=== PATIENT | male | born 1990 | race Caucasian/White ===

== ENCOUNTER 2017-11-07 19:13 | Inpatient (IN) | payer BC ==
[~2017-11-07] VITALS: Ht 175.3 cm; Wt 99.0 kg
[2017-11-07 19:28] VITALS: Ht 175.3 cm; Wt 99.0 kg
[2017-11-07 21:12] LABS: BASOPHIL % 0.5 % (0-2); PLATELET COUNT 182 x10^3mcL (130-400); RED CELL DISTRIBUTION WIDTH 12.1 % (11.5-14.5)
[2017-11-07 21:21] LABS: CALCIUM 8.6 mg/dL (8.5-10.1); CARBON DIOXIDE 22.7 mmol/L (21-32); CHLORIDE SERUM 99 mmol/L (98-107); CREATININE SERUM 0.8 mg/dL (0.7-1.3); GFR1 > 60 mL/min; GLUCOSE SERUM 119 mg/dL (74-106); POTASSIUM SERUM 3.8 mmol/L (3.5-5.1); SODIUM SERUM 132 mmol/L (136-145)
[2017-11-07 21:26] LABS: ALKALINE PHOSPHATASE 68 U/L (46-116); ALT/SGPT 118 U/L (16-63); BILIRUBIN TOTAL 0.71 mg/dL (0.20-1.00); LIPASE 1024 IU/L (73-393)
[2017-11-07 21:32] LABS: TOTAL PROTEIN, SERUM 8.3 g/dL (6.4-8.2)
[2017-11-07 22:16] LABS: AST/SGOT 151 U/L (15-37)
[2017-11-07 23:01] LABS: T3 TOTAL 0.83 ng/mL
[2017-11-07 23:17] LABS: AMYLASE 72 U/L (25-115)
[2017-11-07 23:25] VITALS: BP 164/105
[2017-11-07 23:26] LABS: CHOLESTEROL 236 mg/dL (<200); CHOLESTEROL/HDL RATIO 7.9; HDL CHOLESTEROL 30 mg/dL (40-60); TRIGLYCERIDES 1235 mg/dL (<150)
[2017-11-07 23:29] LABS: UA SPECIFIC GRAVITY 1.025 (1.005-1.035); microscopic required? YES; urine erythrocyte TRACE (NEGATIVE)
[2017-11-07 23:43] LABS: AMPHETAMINE QUAL UR NONE DETECTED (See below)
[2017-11-07 23:53] LABS: FREE T4 0.86 ng/dL (0.76-1.46); T4(THYROXINE) 5.8 ug/dL (4.7-13.3)
[2017-11-07 23:58] VITALS: BP 149/88
[2017-11-08 04:43] VITALS: BP 133/81
[2017-11-08 04:50] LABS: BASOPHIL % 0.3 % (0-2); PLATELET COUNT 247 x10^3mcL (130-400); RED CELL DISTRIBUTION WIDTH 11.9 % (11.5-14.5)
[2017-11-08 05:03] LABS: CALCIUM 7.5 mg/dL (8.5-10.1); CARBON DIOXIDE 22.2 mmol/L (21-32); CHLORIDE SERUM 101 mmol/L (98-107); CREATININE SERUM 0.9 mg/dL (0.7-1.3); GFR1 > 60 mL/min; GLUCOSE SERUM 108 mg/dL (74-106); MAGNESIUM 1.6 mg/dL (1.8-2.4); PHOSPHOROUS 3.5 mg/dL (2.5-4.9); POTASSIUM SERUM 3.8 mmol/L (3.5-5.1); SODIUM SERUM 132 mmol/L (136-145)
[2017-11-08 09:12] VITALS: BP 101/55; BP 142/87
[2017-11-08 13:56] VITALS: BP 130/76
[2017-11-08 18:31] VITALS: BP 139/86
[2017-11-08 20:24] VITALS: BP 153/90
[2017-11-09 05:00] VITALS: BP 133/81
[2017-11-09 05:57] LABS: BASOPHIL % 0.1 % (0-2); PLATELET COUNT 185 x10^3mcL (130-400); RED CELL DISTRIBUTION WIDTH 12.5 % (11.5-14.5)
[2017-11-09 06:02] LABS: CARBON DIOXIDE 23.5 mmol/L (21-32); CHLORIDE SERUM 103 mmol/L (98-107); CREATININE SERUM 0.7 mg/dL (0.7-1.3); GFR1 > 60 mL/min; GLUCOSE SERUM 103 mg/dL (74-106); LIPASE 635 IU/L (73-393); MAGNESIUM 2.2 mg/dL (1.8-2.4); PHOSPHOROUS 2.5 mg/dL (2.5-4.9); POTASSIUM SERUM 3.7 mmol/L (3.5-5.1); SODIUM SERUM 133 mmol/L (136-145)
[2017-11-09 08:42] VITALS: BP 142/83
[2017-11-09 14:00] VITALS: BP 131/81
[2017-11-09 14:21] VITALS: BP 142/83
[2017-11-09 16:58] VITALS: BP 142/83
== END 2017-11-09 18:08 | disposition home or self-care (01) | DRG 438 ==
LOC: ED 19:13 → DU 22:05 → MU 22:05 → DU 11-08 03:22
PROVIDERS: Emergency Medicine; Family Medicine
DX: K85.20 Alcohol induced acute pancreatitis without necrosis or infection (principal); N17.0 Acute kidney failure with tubular necrosis; E72.20 Disorder of urea cycle metabolism, unspecified; E78.1 Pure hyperglyceridemia; F10.129 Alcohol abuse with intoxication, unspecified; F14.90 Cocaine use, unspecified, uncomplicated; Y90.4 Blood alcohol level of 80-99 mg/100 ml; R74.0 Nonspecific elevation of levels of transaminase and lactic acid dehydrogenase [LDH]; E78.5 Hyperlipidemia, unspecified; F17.210 Nicotine dependence, cigarettes, uncomplicated; E66.9 Obesity, unspecified; Z68.32 Body mass index [BMI] 32.0-32.9, adult; F19.10 Other psychoactive substance abuse, uncomplicated
CPT/HCPCS: 83880; 84439; C9113; G0480; J1885; J2270; J2405; J3010; J3475; J7030; J7120; Q0162

== ENCOUNTER 2018-01-21 09:23 | Inpatient (IN) | payer BC ==
[~2018-01-21] VITALS: Ht 175.3 cm; Wt 102.2 kg
[2018-01-21 09:39] VITALS: Ht 175.3 cm; Wt 102.2 kg
[2018-01-21 10:33] LABS: CHLORIDE SERUM 98 mmol/L (98-107); GFR1 > 60 mL/min; GLUCOSE SERUM 123 mg/dL (74-106); POTASSIUM SERUM 3.8 mmol/L (3.5-5.1); SODIUM SERUM 133 mmol/L (136-145)
[2018-01-21 10:38] LABS: ALBUMIN 4.1 g/dL (3.4-5.0); ALKALINE PHOSPHATASE 88 U/L (46-116); ALT/SGPT 205 U/L (16-63); AST/SGOT 115 U/L (15-37); BILIRUBIN TOTAL 0.8 mg/dL (0.20-1.00)
[2018-01-21 10:45] LABS: LIPASE 2148 IU/L (73-393); TOTAL PROTEIN, SERUM 8.5 g/dL (6.4-8.2)
[2018-01-21 10:46] LABS: BASOPHIL % 0.1 % (0-2); PLATELET COUNT 304 x10^3mcL (130-400); RED CELL DISTRIBUTION WIDTH 12.4 % (11.5-14.5)
[2018-01-21 12:33] LABS: PHOSPHOROUS 3.7 mg/dL (2.5-4.9)
[2018-01-21 12:34] VITALS: BP 152/86
[2018-01-21 13:01] LABS: CHOLESTEROL 256 mg/dL (<200); CHOLESTEROL/HDL RATIO 9.5; HDL CHOLESTEROL 27 mg/dL (40-60); TRIGLYCERIDES 1384 mg/dL (<150)
[2018-01-21 13:22] LABS: UA SPECIFIC GRAVITY 1.025 (1.005-1.035); microscopic required? YES; urine erythrocyte NEGATIVE (NEGATIVE)
[2018-01-21 14:58] LABS: AMPHETAMINE QUAL UR NONE DETECTED (See below)
[2018-01-21 17:54] VITALS: BP 147/101
[2018-01-21 20:51] VITALS: BP 170/111
[2018-01-21 23:00] VITALS: BP 136/104
[2018-01-22 05:58] VITALS: BP 132/93
[2018-01-22 06:53] LABS: CALCIUM 7.6 mg/dL (8.5-10.1); CARBON DIOXIDE 18.9 mmol/L (21-32); POTASSIUM SERUM 4.3 mmol/L (3.5-5.1)
[2018-01-22 07:25] LABS: PLATELET COUNT 220 x10^3mcL (130-400); RED CELL DISTRIBUTION WIDTH 13.3 % (11.5-14.5)
[2018-01-22 07:58] LABS: BAND NEUTROPHIL 26 % (0-10); BASOPHIL 0 % (0-2); MONOCYTE 6 % (0-7); SEGMENTED NEUTROPHILS 62 % (37-75)
[2018-01-22 07:59] LABS: PLATELET MORPHOLOGY PLATELETS DECREASED; rbc morphology (normal/abnorm) NORMAL (NORMAL)
[2018-01-22 09:30] VITALS: BP 154/112
[2018-01-22 14:50] VITALS: BP 145/96
[2018-01-22 16:55] VITALS: BP 145/93
[2018-01-22 20:20] VITALS: BP 146/106
[2018-01-22 22:13] VITALS: BP 139/94
[2018-01-23] VITALS (7 sets, daily range): BP systolic 150–165; BP diastolic 83–105
[2018-01-23 06:24] LABS: PLATELET COUNT 181 x10^3mcL (130-400); RED CELL DISTRIBUTION WIDTH 13.8 % (11.5-14.5)
[2018-01-23 06:29] LABS: CALCIUM 6.8 mg/dL (8.5-10.1); CARBON DIOXIDE 16.6 mmol/L (21-32); CHLORIDE SERUM 99 mmol/L (98-107); GFR1 > 60 mL/min; GLUCOSE SERUM 156 mg/dL (74-106); SODIUM SERUM 126 mmol/L (136-145)
[2018-01-23 06:37] LABS: AMYLASE 208 U/L (25-115)
[2018-01-23 07:09] LABS: LIPASE 2719 IU/L (73-393)
[2018-01-23 14:11] LABS: BAND NEUTROPHIL 20 % (0-10); MONOCYTE 6 % (0-7); SEGMENTED NEUTROPHILS 59 % (37-75)
[2018-01-23 14:19] LABS: rbc morphology (normal/abnorm) ABNORMAL (NORMAL)
[2018-01-23 14:20] LABS: PLATELET MORPHOLOGY PLATELETS NORMAL
[2018-01-24 04:49] VITALS: BP 152/96
[2018-01-24 07:35] LABS: CALCIUM 7.4 mg/dL (8.5-10.1); CARBON DIOXIDE 23.4 mmol/L (21-32); CHLORIDE SERUM 97 mmol/L (98-107); CREATININE SERUM 0.7 mg/dL (0.7-1.3); GFR1 > 60 mL/min; GLUCOSE SERUM 116 mg/dL (74-106); POTASSIUM SERUM 3.6 mmol/L (3.5-5.1); SODIUM SERUM 129 mmol/L (136-145)
[2018-01-24 07:37] LABS: AMYLASE 160 U/L (25-115); LIPASE 1828 IU/L (73-393)
[2018-01-24 07:53] LABS: PLATELET COUNT 190 x10^3mcL (130-400); RED CELL DISTRIBUTION WIDTH 13.6 % (11.5-14.5)
[2018-01-24 10:18] VITALS: BP 143/91
[2018-01-24 13:40] VITALS: BP 143/84
[2018-01-24 14:29] LABS: BAND NEUTROPHIL 23 % (0-10); METAMYELOCTE 1 % (0-2); MONOCYTE 7 % (0-7); SEGMENTED NEUTROPHILS 51 % (37-75)
[2018-01-24 14:30] LABS: MYELOCYTE 2 % (0-2); rbc morphology (normal/abnorm) NORMAL (NORMAL)
[2018-01-24] MEDS ORDERED: LIB25 PO (15:31)
[2018-01-24] MEDS ORDERED: TOR10 PO (15:32)
[2018-01-24 16:38] VITALS: BP 143/84
[2018-01-24 16:45] VITALS: BP 140/86
== END 2018-01-24 18:34 | disposition home or self-care (01) | DRG 438 ==
LOC: ED 09:23 → MU 11:43 → DU 11:43 → MU 12:24 → DU 01-22 00:55
PROVIDERS: Emergency Medicine; Family Medicine
DX: K85.90 Acute pancreatitis without necrosis or infection, unspecified (principal); N17.0 Acute kidney failure with tubular necrosis; E87.1 Hypo-osmolality and hyponatremia; E78.5 Hyperlipidemia, unspecified; F10.10 Alcohol abuse, uncomplicated; Y90.9 Presence of alcohol in blood, level not specified; E86.0 Dehydration; K86.1 Other chronic pancreatitis; F14.10 Cocaine abuse, uncomplicated; Z71.51 Drug abuse counseling and surveillance of drug abuser; D72.829 Elevated white blood cell count, unspecified
CPT/HCPCS: C9113; G0480; J0360; J2060; J2270; J2405; J7030; J8597; Q0092; Q0162

== ENCOUNTER 2018-11-24 19:50 | Inpatient (IN) | payer OTHER ==
[~2018-11-24] VITALS: Ht 175.3 cm; Wt 100.2 kg
[~2018-11-24 19:50] MED LIST: LIB25 PO; TOR10 PO
[2018-11-24 20:30] VITALS: Ht 175.3 cm; Wt 100.2 kg
--- NOTE | 2018-11-24 21:23 | NUR ---
PT COMES TO ED WITH C/C RLQ ABD PAIN. 01/08 SHARP, RADIATING TO LEFT LOWER BACK. C/O N/V/D. DENIES FEVER AND DYSURIA. PER PT HE HAS HX PANCREATITIS AND IS NOT SUPPOSED TO BE DRINKING. PT STS "I OVERDID IT A LITTLE THIS WEEKEND WITH ALCOHOL AND I THINK ITS MY PANCREATITIS ACTING UP AGAIN." PT CONNECTED TO MONITOR. AWAITING MSE.
[2018-11-24 21:56] LABS: BASOPHIL % 0.3 % (0-2); PLATELET COUNT 265 x10^3mcL (130-400); RED CELL DISTRIBUTION WIDTH 12.7 % (11.5-14.5)
[2018-11-24 21:58] LABS: UA SPECIFIC GRAVITY >=1.030 (1.005-1.035); microscopic required? YES; urine erythrocyte 2+ (NEGATIVE)
[2018-11-24 22:20] LABS: CALCIUM 9.1 mg/dL (8.5-10.1); CARBON DIOXIDE 22.2 mmol/L (21-32); CHLORIDE SERUM 100 mmol/L (98-107); CREATININE SERUM 1.1 mg/dL (0.7-1.3); GFR1 > 60 mL/min; GLUCOSE SERUM 127 mg/dL (74-106); POTASSIUM SERUM 4.2 mmol/L (3.5-5.1); SODIUM SERUM 138 mmol/L (136-145)
--- NOTE | 2018-11-24 22:20 | NUR ---
PT TAKEN TO CT.
[2018-11-24 22:22] LABS: ALBUMIN 4.5 g/dL (3.4-5.0); ALKALINE PHOSPHATASE 62 U/L (46-116); ALT/SGPT 96 U/L (16-63); AST/SGOT 61 U/L (15-37); BILIRUBIN TOTAL 0.68 mg/dL (0.20-1.00)
[2018-11-24 22:25] LABS: AMYLASE 173 U/L (25-115); TOTAL PROTEIN, SERUM 8.5 g/dL (6.4-8.2)
--- NOTE | 2018-11-24 23:01 | NUR ---
PT PAIN REMAINS 01/08. DR WILKINS AWARE. FENTANYL TO BE ORDERED. MEDICATED ORDERED, SEE EMAR.
[2018-11-24 23:05] LABS: LIPASE 2534 IU/L (73-393)
--- NOTE | 2018-11-25 00:05 | NUR ---
REPORT CALLED AND GIVEN TO MARGARET ON MST.
[2018-11-25 00:34] VITALS: BP 134/86
--- NOTE | 2018-11-25 00:45 | NUR ---
RECEIVED PT FROM ER, PT ADMIT FOR INTRACTABLE VOMITTING, AND ACUTE PANCREATITIS, PT IS A/O X4, VERBAL RESPONSIVE, ABLE TO TELL WHAT HE NEEDS. LUNG SOUND CLEAR BILATERAL, NO COUGH, NO SOB, PT DENY ANY CHEST PAIN OR DISCOMFORT, BOWEL SOUND PRESENT ALL 4 QUADRANTS, NO DISTENTION, BUT C/O ABD PAIN 11/08, PT STATE HE DRINK TOO MUCH YESTERDAY. AND ALSO HE DRINK EVERY OTHER DAYS. AND USUALLY DRINK 2 BEER. NO ETOH WITHDRAWAL SYMPTON NOTED AT THIS MOMENT. PEDAL PULSE PRESENT BOTH FEET, NO EDEMA, IV AT RIGHT AC, NO LEAKING, NO INFILTRATION. ALL ADLS ASSIST, ALL NEED MET, CALL LIGHT IN REACH, WILL CONTINUE TO MONITOR.
--- NOTE | 2018-11-25 01:00 | NUR ---
ASSUMED CARE OF PATIENT AT THIS TIME. PATIENT REPORTING 10/10 ABDOMINAL PAIN THAT RADIATES TO HIS BACK. ABDOMEN IS SOFT AND FLAT. IV SALINE LOCKED TO RAC.
--- NOTE | 2018-11-25 01:22 | NUR ---
PATIENT GIVEN DILAUDID PER EMAR FOR REPORT OF 10/10 ABDOMINAL PAIN.
--- NOTE | 2018-11-25 01:40 | NUR ---
IV INFUSING NS AT 125 ML/HR PER EMAR AT THIS TIME.
--- NOTE | 2018-11-25 01:45 | NUR ---
PATIENT TRANSFERRED TO [facility] DUE TO ALCOHOL WITHDRAWAL. PATIENT ON MONITOR 25, NSR 72 PACS.
--- NOTE | 2018-11-25 04:28 | NUR ---
PATIENTS IV TO RAC WONT FLUSH. IV REMOVED WITH CATHETER INTACT. NEW 22 G IV STARTED ON LH. DILAUDID GIVEN PER EMAR FOR REPORT OF 10/10 ABDOMINAL PAIN.
--- NOTE | 2018-11-25 06:07 | NUR ---
KARMA REPORTS HIS PAIN FEELS MANAGEABLE AT 5/10. IV TO LH INFUSING WELL WITHOUT INFILTRATION. ON TELE 25 NSR WITH OCCASIONAL PAC. BED LOCKED AND IN LOWEST POSITION. CALL LIGHT AND BEDSIDE TABLE WITHIN REACH. WILL ENDORSE CRAE TO DAYSHIFT NURSE.
[2018-11-25 06:23] VITALS: BP 143/92
[2018-11-25 06:40] LABS: BASOPHIL % 0.2 % (0-2); PLATELET COUNT 232 x10^3mcL (130-400)
[2018-11-25 07:11] LABS: CALCIUM 7.9 mg/dL (8.5-10.1); CARBON DIOXIDE 21.3 mmol/L (21-32); CHLORIDE SERUM 104 mmol/L (98-107); CREATININE SERUM 0.9 mg/dL (0.7-1.3); GFR1 > 60 mL/min; GLUCOSE SERUM 127 mg/dL (74-106); SODIUM SERUM 139 mmol/L (136-145)
[2018-11-25 07:20] LABS: AMYLASE 216 U/L (25-115)
--- NOTE | 2018-11-25 07:59 | NUR ---
AAO TIMES 4. TELE # 25 SR. LUNGS CTA. NO SOB. O2 SAT ON RA 99%. BS'S ACTIVE TIMES 4. GOMEZ STRONG. SLEEPY BUT AROUSABLE. IV SITE CDI. NPO, C/O NAUSEA AND PAIN TO ABDOMEN, HISTORY OF ETOH ABUSE. LIPASE 2,534, AMYLASE 216. NO FAMILY PRESENT. IV SITE CDI. BANANA BAG STARTED DIRECTED.
[2018-11-25 08:17] LABS: LIPASE 2344 IU/L (73-393)
[2018-11-25 08:52] VITALS: BP 137/78
[2018-11-25 12:19] VITALS: BP 150/92
--- NOTE | 2018-11-25 17:48 | NUR ---
SLEEPING MOST OF DAY, BUT AWAKENS AND SITS UP AND ASKS FOR PAIN MEDICINE FOR ABDOMINAL AND BACK PAIN. DILAUDID 1 MG IVP WAS GIVEN AT 1554. TELE # 25 SR. NO SOB. VS'S STABLE. IV SITE CDI. COOPERATIVE. NO SOB.
[2018-11-25 19:17] VITALS: BP 146/76
--- NOTE | 2018-11-25 19:20 | NUR ---
REC'D PT FROM DAY NURSE. FEMALE GUEST AT BEDSIDE. PT SITTING UP IN BED. AAOX4, SPEECH CLEAR, FOLLOWS COMMANDS. TELE 25. DENIES CP, DIZZINESS, OR PALPITATIONS. DENIES RESP DISTRESS OR SOB. BREATHING EVEN/UNLABORED ON RA. ABD SOFT/ROUND/TENDER. C/O SHARP L SIDED ABD PAIN 10/10 RADIATING TO L SIDE. OF BACK. WILL GIVE DILAUDID PER ORDER. DENIES N/V. VOIDING FREELY. AMBULATORY. SKIN INTACT. IV TO LH PATENT AND INFUSING, SITE WNL. CALL LIGHT WITHIN REACH, BED AT LOWEST POSITION. WILL CONTINUE TO MONITOR.
[2018-11-25 21:06] VITALS: BP 145/89
--- NOTE | 2018-11-25 23:19 | NUR ---
PT C/O SHARP 10/10 ABD PAIN. DILAUDID GIVEN PER ORDER. WILL MONITOR FOR RELIEF.
--- NOTE | 2018-11-26 01:38 | NUR ---
PT RESTING IN BED WITH EYES CLOSED. NO SIGNS OF DISTRESS NOTED. BREATHING EVEN/UNLABORED ON RA. CALL LIGHT WITHIN REACH, BED AT LOWEST POSITION. WILL CONTINUE TO MONITOR.
--- NOTE | 2018-11-26 02:42 | NUR ---
PT C/O 10/ SHARP L SIDED ABD PAIN RADIATING TO THE BACK. DILAUDID GIVEN PER ORDER. WILL MONITOR FOR RELIEF.
[2018-11-26 05:40] VITALS: BP 129/66
--- NOTE | 2018-11-26 05:54 | NUR ---
PT SLEEPING. AWAKENS WITH VERBAL STIMULI. SCHEDULED ATIVAN GIVEN. PT REPORTS PAIN TO ABD AND REQUESTING PAIN MEDS. INFORMED PT UNABLE TO GIVE ATIVAN CONCURRENTLY WITH DILAUDID D/T RISK OF RESPIRATORY DEPRESSION. INSTRUCTED PT TO CALL ME IN 40-50 MIN IF AWAKE AND STILL IN PAIN. PT VERBALIZED UNDERSTANDING. NO SIGNFICANT CHANGES DURING SHIFT. CALL LIGHT WITHIN REACH, BED AT LOWEST POSITION. WILL ENDORSE TO DAY NURSE.
--- NOTE | 2018-11-26 07:02 | NUR ---
RECEIVED PT FROM FLOOR REFINISHER NURSE. PT IN BED SLEEPING, AROUSABLE, RESP E/U ON RA. NO SIGNS OF ACUTE DISTRESS NOTED. ON TELE 25 SHOWING NSR, HR: 97. IV TO LH W/ NO SIGNS OF INFILTRATION, IVF INFUSING WELL. BED IN LOWEST POSITION AND CALL LIGHT WITHIN REACH. WILL CONTINUE TO MONITOR.
[2018-11-26 07:30] LABS: BASOPHIL % 0.2 % (0-2); PLATELET COUNT 160 x10^3mcL (130-400); RED CELL DISTRIBUTION WIDTH 12.7 % (11.5-14.5)
[2018-11-26 07:56] VITALS: BP 147/79
[2018-11-26 08:06] LABS: ALKALINE PHOSPHATASE 48 U/L (46-116); ALT/SGPT 57 U/L (16-63); AST/SGOT 40 U/L (15-37); BILIRUBIN TOTAL 0.7 mg/dL (0.20-1.00); CALCIUM 7.7 mg/dL (8.5-10.1); CARBON DIOXIDE 23.7 mmol/L (21-32); CHLORIDE SERUM 106 mmol/L (98-107); CREATININE SERUM 0.7 mg/dL (0.7-1.3); GFR1 > 60 mL/min; GLUCOSE SERUM 117 mg/dL (74-106); MAGNESIUM 2.3 mg/dL (1.8-2.4); POTASSIUM SERUM 3.8 mmol/L (3.5-5.1); SODIUM SERUM 141 mmol/L (136-145)
[2018-11-26 08:07] LABS: ALBUMIN 3.1 g/dL (3.4-5.0)
--- NOTE | 2018-11-26 12:30 | NUR ---
PT C/O ABD PAIN 01/08. MEDICATED ORDERED PER EMAR, COMFORT MEASURES IMPLEMENTED. PT AOX4, RESP E/U ON RA, DENIES N/V. BED IN LOWEST POSITION AND CALL LIGHT WITHIN REACH. WILL CONTINUE TO MONITOR.
[2018-11-26 16:22] VITALS: BP 141/83
--- NOTE | 2018-11-26 17:50 | NUR ---
PT RESTING IN BED, AOX4, RESP E/U ON RA. REPORTED MILD ABD PAIN 4/10 BUT TOLERABLE, NO REQUEST FOR PAIN MEDS. DENIES N/V, TOLERATING FULL LIQUID DIET WELL. IV TO L HAND W/ NO SIGNS OF INFILTRATION, IVF INFUSING WELL. BED IN LOWEST POSITION AND CALL LIGHT WITHIN REACH. WILL ENDORSE TO ONCOMING NURSE.
[2018-11-26 19:26] VITALS: BP 136/89
--- NOTE | 2018-11-26 19:30 | NUR ---
RECIEVED PT IN NO ACUTE DISTRESS. AOX4. TELE #25, SR. BREATHING E/U. DENIES ABD PAIN/N/V. IV TO LH, PATENT, NO REDNESS/SWELLING. BED IN LOWEST POSITION, 2 SIDE RAILS UP, CALL LIGHT IN REACH. INSTRUCTED TO CALL FOR ASSISTANCE.
--- NOTE | 2018-11-27 01:30 | NUR ---
RESTING WITH EYES CLOSED. BREATHING E/U. NO ACUTE DISTRESS NOTED. WILL CONTINUE TO MONITOR.
[2018-11-27 05:09] VITALS: BP 121/68
--- NOTE | 2018-11-27 07:30 | NUR ---
RECEIVED PATIENT IN BED AWAKE, ALERT. DENIES ANY PAIN OR DISCOMFORT. RESP EVEN AND LABORED, LUNGS CLEAR, ON ROOM AIR. IVF INFUSING WELL SITE PATENT. TOLERATED FULL LIQUID DIET FOR BREAKFAST WELL. TELE 25 NSR. WILL CONTINUE TO MONITOR.
--- NOTE | 2018-11-27 08:18 | NUR ---
PATIENT'S PLAN OF CARE WAS DISCUSSED AND REVIEWED WITH LOAN SERVICING OFFICER:LILIBETH MARTINEZ. I HAVE REVIEWED THE DATA COLLECTION BY LOAN SERVICING OFFICER (NAME):LILIBETH MARTINEZ. ENTERED ON (DATE/TIME):11/27/18. I CONCUR WITH THE DATA AND ANY EXCEPTIONS OR COMMENTS ARE LISTED BELOW:
[2018-11-27 08:38] VITALS: BP 148/85
--- NOTE | 2018-11-27 10:28 | NUR ---
PATIENT IN BED, AWAKE, ALERT AND ORIENTED. C/O UPPER BACK PAIN 8/10 ON THE PAIN SCALE. MEDICATED WITH DILAUDID IV BY RENEE PACHECO ORDERED. WILL MONITOR FOR EFFECT.
--- NOTE | 2018-11-27 10:58 | NUR ---
PATIENT IS IN BED, APPEARS TO BE SLEEPING WELL. NO FURTHER C/O BACK PAIN OR DISCOMFORT SINCE DILAUDID WAS GIVEN. WILL CONTINUE TO MONITOR.
[2018-11-27 11:34] VITALS: BP 155/95
--- NOTE | 2018-11-27 14:12 | NUR ---
PATIENT REMAINS IN BED. ALERT ORIENTED. NO FURHTER C/O BACK OR ABD PAIN. TOLERATED DIET WELL. NEW IV STARTED THIS AM BY RENEE PACHECO. NO ACUTE DISTRESS NOTED. WILL CONTINUE TO MONITOR.
--- NOTE | 2018-11-27 16:06 | NUR ---
PATIENT IS IN BED, WATCHING TV. NO C/O PAIN OR DISCOMFORT AT THIS TIME. NO ACUTE DISTRESS NOTED. WILL CONTINUE TO MONITOR.
[2018-11-27 16:45] VITALS: BP 154/97
--- NOTE | 2018-11-27 17:48 | NUR ---
PATIENT SITTING UP IN BED. C/O BACK PAIN 8/10 ON THE PAIN SCALE. MEDICATED WITH NORCO PO ORDERED. WILL MONITOR FOR EFFECT.
--- NOTE | 2018-11-27 18:36 | NUR ---
PATIENT SITTING UP IN BED EATING DINNER TRAY. BACK PAIN IS NOW 6/10 ON THE PAIN SCALE. WILL CONTINUE TO MONITOR.
--- NOTE | 2018-11-27 19:13 | NUR ---
RECEIVED PT FROM PREVIOUS SHIFT. PT A/OX4. DENIES PAIN. DENIES SOB ON RA. IV PATENT. CALL LIGHT WITHIN REACH, BED IN LOW POSITION. WILL CONTINUE TO MONITOR.
[2018-11-27 19:16] VITALS: BP 140/100
--- NOTE | 2018-11-28 01:01 | NUR ---
PT RESTING IN NO ACUTE DISTRESS. RR EVEN AND UNLABORED. CALL LIGHT WITHIN REACH, BED IN LOW POSITION. WILL CONTINUE TO MONITOR.
[2018-11-28 04:55] VITALS: BP 122/75
--- NOTE | 2018-11-28 07:12 | NUR ---
ASSUMED CARE OF PATIENT. SEEN RESTING THIS AM WITH EQUAL AND UNLABORED RESPIRATIONS. NO APPARENT DISTRESS NOTED. IV TO RIGHT HAND PATENT AND INUFSING NS AT 125 ML/HR. WILL CONTINUE TO MONITOR.
[2018-11-28 07:18] LABS: BASOPHIL % 0.6 % (0-2); PLATELET COUNT 205 x10^3mcL (130-400); RED CELL DISTRIBUTION WIDTH 13.1 % (11.5-14.5)
[2018-11-28 07:41] LABS: ALKALINE PHOSPHATASE 84 U/L (46-116); ALT/SGPT 41 U/L (16-63); AST/SGOT 24 U/L (15-37); BILIRUBIN TOTAL 0.43 mg/dL (0.20-1.00); CALCIUM 8.6 mg/dL (8.5-10.1); CARBON DIOXIDE 25.4 mmol/L (21-32); CHLORIDE SERUM 103 mmol/L (98-107); CREATININE SERUM 0.7 mg/dL (0.7-1.3); GFR1 > 60 mL/min; GLUCOSE SERUM 122 mg/dL (74-106); POTASSIUM SERUM 3.8 mmol/L (3.5-5.1); SODIUM SERUM 140 mmol/L (136-145); TOTAL PROTEIN, SERUM 7.3 g/dL (6.4-8.2)
[2018-11-28 07:42] LABS: ALBUMIN 2.8 g/dL (3.4-5.0)
--- NOTE | 2018-11-28 08:22 | NUR ---
COMPLAINING OF 7/10 ABDOMINAL PAIN IN LLQ. SANAMN MARIO PROVIDED.
[2018-11-28 08:43] VITALS: BP 138/91
[2018-11-28 09:31] VITALS: BP 138/91
--- NOTE | 2018-11-28 10:02 | NUR ---
DISCHARGE ISNTRUCTION AND EDUCATION PROVIDED. IV REMOVED WITH CATHTER INTACT. ID BAND REMOVED. TELEMONITOR REMOVED. AWAITING PICKUP.
== END 2018-11-28 10:40 | disposition home or self-care (01) | DRG 439 ==
LOC: ED 19:50 → DU 23:49 → MU 23:49 → DU 11-25 00:36
PROVIDERS: Emergency Medicine; Internal Medicine Pulmonary Disease; ADMIT Internal Medicine Pulmonary Disease
DX: K85.20 Alcohol induced acute pancreatitis without necrosis or infection (principal); K86.3 Pseudocyst of pancreas; F10.10 Alcohol abuse, uncomplicated; Y90.0 Blood alcohol level of less than 20 mg/100 ml
CPT/HCPCS: C9113; G0378; J1170; J1885; J2405; J3010; J3490; J7030